=== PATIENT | female | born 1990 | race Two or more races ===

== ENCOUNTER 2021-12-14 23:18 | Inpatient (IN) | payer BC, MEDICAID ==
[~2021-12-14] VITALS: Ht 175.3 cm; Wt 78.4 kg
[2021-12-15] MEDS ORDERED: ALPR-707 PO (00:01)
[2021-12-15] MEDS ORDERED: ARIP5TAB37 PO (00:01)
[2021-12-15 00:03] LABS: BASOPHILS % (AUTO) 0.7 % (0.0-2.0); HEMATOCRIT 41.1 % (36-46); HEMOGLOBIN 13.3 g/dL (12.0-16.0); LYMPHOCYTES # (AUTO) 3.2 K/uL (1.0-4.8); LYMPHOCYTES % (AUTO) 33.7 % (22.0-44.0); MEAN CORPUSCULAR HEMOGLOBIN 31.9 pg (26.0-34.0); MEAN CORPUSCULAR HGB CONC 32.3 G/dL (31.0-37.0); MEAN CORPUSCULAR VOLUME 99 fL (80-100); MONOCYTES # (AUTO) 0.7 K/uL (0.1-1.0); MONOCYTES % (AUTO) 7.3 % (2.0-9.0); NEUTROPHILS # (AUTO) 5.5 K/uL (1.8-7.7); NEUTROPHILS % (AUTO) 57.3 % (40.0-70.0); PLATELET COUNT (AUTO) 234 K/uL (150-450); RED BLOOD CELL COUNT(AUTO) 4.17 MIL/uL (4.00-5.20); RED CELL DISTRIBUTION WIDTH 14.8 % (11.5-14.5)
[2021-12-15] MEDS ORDERED: BUPR-344 PO (00:03)
[2021-12-15] MEDS ORDERED: DULO-113 PO (00:03)
[2021-12-15 00:13] LABS: ANION GAP 5 mmol/L (8-16); CARBON DIOXIDE 30 mmol/L (22-29); CHLORIDE 105 mmol/L (98-107); CREATININE 1.07 mg/dL (0.60-1.30); GLUCOSE,RANDOM 102 mg/dL (70-110); POTASSIUM 3.5 mmol/L (3.5-5.1); SODIUM SERUM 140 mmol/L (136-145); UREA NITROGEN, BLOOD 16 mg/dL (7-18)
[2021-12-15 00:14] LABS: GLOMERULAR FILTR. RATE CALC 60 mL/min (>60)
[2021-12-15 00:19] LABS: ALANINE AMINOTRANSFERASE 19 U/L (12-78); ALBUMIN 3.8 g/dL (3.4-5.0); ALKALINE PHOSPHATASE 76 U/L (46-116); ASPARTATE AMINOTRANSFERASE 14 U/L (15-37); BILIRUBIN,TOTAL 0.6 mg/dL (0.1-1.0); TOTAL PROTEIN, SERUM 6.9 g/dL (6.4-8.2)
[2021-12-15 00:56] LABS: COVID AG,FIA SOURCE NASOPHARYNGEAL
[2021-12-15] MEDS ORDERED: ZOLPIDEM TARTRATE 10 MG TABLET PO PRN (01:15)
[2021-12-15] MEDS ORDERED: HALOPERIDOL 5 MG TABLET PO PRN (01:15)
[2021-12-15] MEDS ORDERED: LORazepam 2 MG TABLET PO PRN (01:15)
[2021-12-15 04:01] VITALS: BP 116/78
[2021-12-15] MEDS ORDERED: INFLUENZA VIRUS VACCINE QVS 2022-23 (6MO+)/PF 60 MCG/0.5 ML SYRINGE IM. ONE (04:30)
[2021-12-15 08:00] VITALS: BP 113/63
[2021-12-15] MEDS ORDERED: DOCUSATE SODIUM 100 MG CAPSULE PO PRN (14:15)
[2021-12-15] MEDS ORDERED: MAG HYDROX/AL HYDROX/SIMETH ES 30 ML SUSPENSION UDCUP PO PRN (14:15)
[2021-12-15] MEDS ORDERED: ALBUTEROL SULFATE HFA 90 MCG/PUFF 8 GM INHALER IH PRN (14:15)
[2021-12-15] MEDS ORDERED: GuaiFENesin/D-METHORPHAN [SUGAR-FREE] 200-20MG/10 ML SYRUP UDCUP PO PRN (14:15)
[2021-12-15] MEDS ORDERED: ACETAMINOPHEN 325 MG TABLET PO PRN (14:15)
[2021-12-15] MEDS ORDERED: PETROLATUM,WHITE 28 GM JELLY TP PRN (14:15)
[2021-12-15] MEDS ORDERED: CloNIDine HCL 0.1 MG TABLET PO PRN (14:15)
[2021-12-15] MEDS ORDERED: LOPERAMIDE HCL 2 MG CAPSULE PO PRN (14:15)
[2021-12-15] MEDS ORDERED: NICOTINE 14 MG/24 HOUR PATCH TD PRN (14:15)
[2021-12-15] MEDS ORDERED: ONDANSETRON HCL 4 MG TABLET PO PRN (14:15)
[2021-12-15] MEDS ORDERED: IBUPROFEN 400 MG TABLET PO PRN (14:15)
[2021-12-15] MEDS ORDERED: MAGNESIUM HYDROXIDE SUSPENSION 30 ML UDCUP PO PRN (14:15)
[2021-12-15] MEDS: DULoxetine HCL 60 MG CAPSULE PO SCH (14:39)
[2021-12-15] MEDS: BuPROPion HCL 75 MG TABLET PO SCH (14:39)
[2021-12-15] MEDS: ARIPiprazole 5 MG TABLET PO SCH (14:40)
[2021-12-15] MEDS: LORazepam 1 MG TABLET PO PRN (20:06)
[2021-12-15 20:16] VITALS: BP 130/74
[2021-12-16 07:48] LABS: APPEARANCE,URINE TURBID (CLEAR); BILIRUBIN,URINE NEGATIVE (NEGATIVE); GLUCOSE, URINE (UA) NEGATIVE (NEGATIVE); KETONES,URINE NEGATIVE (NEGATIVE); LEUKOCYTE ESTERASE ,URINE SMALL (NEGATIVE); NITRATE,URINE NEGATIVE (NEGATIVE); OCCULT BLOOD,URINE NEGATIVE (NEGATIVE); PROTEIN,URINE TRACE mg/dL (NEGATIVE); SPECIFIC GRAVITIY, URINE 1.022 (1.003-1.030); UROBILINOGEN,URINE <=1.0 mg/dL (<=1.0)
[2021-12-16 08:10] LABS: AMPHET/METH SCREEN,URINE NEGATIVE (NEGATIVE); BARBITURATE SCREEN, URINE NEGATIVE (NEGATIVE); BENZODIAZEPINES SCREEN,URINE POSITIVE (NEGATIVE); CANNABINOID SCREEN,URINE POSITIVE (NEGATIVE); COCAINE SCREEN,URINE NEGATIVE (NEGATIVE); METHADONE SCREEN, URINE NEGATIVE (NEGATIVE); OPIATE SCREEN,URINE NEGATIVE (NEGATIVE)
[2021-12-16 08:12] LABS: PHENCYCLIDINE SCREEN,URINE NEGATIVE (NEGATIVE)
[2021-12-16 08:30] LABS: AMORPHOUS SEDIMENT,UR Many /LPF (None Seen); BACTERIA,URINE None Seen /HPF (None Seen); CALCIUM OXALATE CRYSTALS,UR Few /LPF (None Seen); RBC,URINE 0-2 /HPF (0-2)
[2021-12-16 08:40] VITALS: BP 110/67
[2021-12-16] MEDS: DULoxetine HCL 60 MG CAPSULE PO SCH (08:46)
[2021-12-16] MEDS: BuPROPion HCL 75 MG TABLET PO SCH (08:46)
[2021-12-16] MEDS: ARIPiprazole 5 MG TABLET PO SCH (08:46)
[2021-12-16] MEDS: MULTIVITAMINS, THERAPEUTIC 15 ML UDCUP PO SCH (08:47)
[2021-12-16] MEDS: LORazepam 1 MG TABLET PO PRN (09:02)
[2021-12-16 20:05] VITALS: BP 100/62
[2021-12-17 03:37] VITALS: BP 116/72
[2021-12-17] MEDS: LORazepam 1 MG TABLET PO PRN ×2 (03:39→08:24)
[2021-12-17] MEDS: BuPROPion HCL 75 MG TABLET PO SCH (07:57)
[2021-12-17] MEDS: MULTIVITAMINS, THERAPEUTIC 15 ML UDCUP PO SCH (07:57)
[2021-12-17] MEDS: DULoxetine HCL 60 MG CAPSULE PO SCH (07:58)
[2021-12-17] MEDS: ARIPiprazole 5 MG TABLET PO SCH (07:58)
[2021-12-17 08:18] VITALS: BP 112/73
[2021-12-17] MEDS ORDERED: BUPR-344 PO (10:38)
[2021-12-17] MEDS ORDERED: ARIP5TAB37 PO (10:38)
[2021-12-17] MEDS ORDERED: DULO-113 PO (10:38)
== END 2021-12-17 11:39 | disposition home or self-care (01) | DRG 885 ==
LOC: EMS 23:27 → B3A 12-15 01:33
PROVIDERS: ADMIT Psychiatry & Neurology Psychiatry; ATTEND Psychiatry & Neurology Psychiatry
DX: F33.2 Major depressive disorder, recurrent severe without psychotic features (principal); T42.4X2A Poisoning by benzodiazepines, intentional self-harm, initial encounter; G47.00 Insomnia, unspecified; X78.9XXA Intentional self-harm by unspecified sharp object, initial encounter; K59.00 Constipation, unspecified; S40.021A Contusion of right upper arm, initial encounter; S41.112A Laceration without foreign body of left upper arm, initial encounter; Z20.822 Contact with and (suspected) exposure to COVID-19; Z98.84 Bariatric surgery status; Z79.899 Other long term (current) drug therapy; Y93.89 Activity, other specified; Y92.89 Other specified places as the place of occurrence of the external cause; Y99.8 Other external cause status; Z88.8 Allergy status to other drugs, medicaments and biological substances
CPT/HCPCS: 80053; 80307; 81001; 84703; 85025; 99285; G0480